=== PATIENT | female | born 1995 | race Asian ===

== ENCOUNTER → 2022-09-20 17:37 | Outpatient (CLI) | payer OTHER, SELFPAY ==
--- NOTE | ~2022-09-20 | XR_ITS ---
EXAMINATION: XR thoracic spine 3V, XR sacrum coccyx min 2V, XR lumbar spine 2-3V DATE: 09/20/2022 18:19 INDICATION: Thoracic, lumbar and coccygeal back pain. TECHNIQUE: 1. One AP, lateral and lateral swimmer's views of the thoracic spine were obtained. 2. AP, lateral and coned-down lateral lumbosacral views of the lumbar spine were obtained. 3. AP, angled AP and lateral views of the sacrum and coccyx were obtained. COMPARISON: None. FINDINGS: Thoracic spine: Alignment is normal. Vertebral body and disc heights are normal. Visualized portion of lungs are laurent r. Cardiomediastinal silhouette is normal. Lumbar spine: Alignment is normal. Vertebral body and disc heights are normal. Profiled lumbar facet joints are nor mal. Normal bowel gas pattern. Sacrum and coccyx: Sacral arches are intact. No fractures. Bilateral sacroiliac joints are normal. IMPRESSION: 1. Negative thoracic, lumbar and sacrococcygeal radiographs. Reviewed, dictated and finalized at location A. IMPRESSION: 1. Negative thoracic, lumbar and sacrococcygeal radiographs. IMPRESSION: 1. Negative thoracic, lumbar and sacrococcygeal radiographs.
== END ==
PROVIDERS: PCP Family Medicine; Visit Provider Family Medicine
DX: M53.3 Sacrococcygeal disorders, not elsewhere classified (principal); M54.6 Pain in thoracic spine; M54.50 Low back pain, unspecified
CPT/HCPCS: 72072; 72100; 72220

== ENCOUNTER 2023-01-22 08:58 | Outpatient (CLI) | payer OTHER, SELFPAY ==
--- NOTE | 2023-01-22 11:30 | NEURO_ITS ---
Impression: # Complains of right wrist pain. # Normal Nerve Conduction Study without Carpal Tunnel Syndrome or ulnar neuropathy. # Normal needle/EMG. # Clinical correlation recommended. Nerve Conduction Studies Anti Sensory Summary Table Stim Site NR Peak (ms) P-T Amp (?V) Site1 Site2 Delta-P (ms) Dist (cm) Randy (m/s) Right Median Anti Sensory (2-3nd Digit) Wrist 2.5 74.9 Wrist 2-3nd Digit 2.5 14.0 56 Wrist 2.5 86.9 Wrist 2-3nd Digit 2.5 14.0 56 Right Radial Anti Sensory (Base 1st Digit) Wrist 1.8 41.9 Wrist Base 1st Digit 1.8 0.0 Right Ulnar Anti Sensory (5th Digit) Wrist 2.3 89.5 Wrist 5th Digit 2.3 14.0 61 Motor Summary Table Stim Site NR Onset (ms) O-P Amp (mV) Site1 Site2 Delta-0 (ms) Dist (cm) Randy (m/s) Right Median Motor (Abd Poll Brev) Wrist 2.6 7.8 Elbow Wrist 4.7 29.0 62 Elbow 7.3 7.0 Right Ulnar Motor (Abd Dig Minimi) Wrist 2.2 10.2 A Elbow Wrist 4.8 29.0 60 A Elbow 7.0 8.9 F Wave Studies NR F-Lat (ms) L-R F-Lat (ms) Right Median (Mrkrs) (Abd Poll Brev) 24.92 Right Ulnar (Mrkrs) (Abd Dig Min) 25.42 EMG Side Muscle Nerve Root Ins Act Fibs Amp Dur Recrt Comment Right 1stDorInt Ulnar C8-T1 Nml Nml Nml Nml Nml Right Ext Indicis Radial (Post Int) C7-8 Nml Nml Nml Nml Nml Right Ext Digitorum Radial (Post Int) C7-8 Nml Nml Nml Nml Nml Right BrachioRad Radial C5-6 Nml Nml Nml Nml Nml Right PronatorTeres Median C6-7 Nml Nml Nml Nml Nml Right Abd Poll Brev Median C8-T1 Nml Nml Nml Nml Nml MTDD
== END 2023-01-22 08:59 | disposition home or self-care (01) ==
LOC: ANHNEURO 08:59
PROVIDERS: PCP Family Medicine
DX: M25.531 Pain in right wrist (principal)
CPT/HCPCS: 95886; 95909

== ENCOUNTER 2024-01-16 09:57 | Outpatient (CLI) | payer BC, SELFPAY ==
[2024-01-16 10:31] LABS: Basophils Percent Auto 0.4 % (0.2-1.2); Eosinophils Absolute Auto 0.1 K/mm3 (0-0.3); Eosinophils Percent Auto 1.6 % (0-4.4); Hematocrit 41.7 % (37.0-47.0); Hemoglobin 13.3 g/dL (12.0-15.0); Immature Granulocyte Absolute 0.06 K/mm3 (0.00-0.031); Immature Granulocyte Percent A 0.7 % (0-0.5); Lymphocytes Percent Auto 24.4 % (18.3-44.2); Mean Corpuscular HGB Conc 31.9 g/dl (32-36); Mean Corpuscular Hemoglobin 27.3 pg (26-34); Mean Corpuscular Volume 85.6 fl (80-100); Mean Platelet Volume 9.6 fl (7.4-10.4); Monocytes Absolute Auto 0.6 K/mm3 (0.1-0.6); Monocytes Percent Auto 6.4 % (2.6-8.5); Neutrophils Percent Auto 66.5 % (45.5-73.1); Platelet Count Result 269 k/mm3 (150-375); Red Blood Count 4.87 M/mm3 (4.2-5.4); Red Cell Distribution Width 14.6 % (11.5-14.5)
[2024-01-16 10:38] LABS: Alanine Aminotransferase 42 U/L (6-35); Albumin Level 4.9 g/dL (3.5-5.1); Alkaline Phosphatase 89 U/L (38-126); Anion Gap 14 mmol/L (4-12); Aspartate Amino Transferase 32 U/L (14-36); Bilirubin,Total 0.4 mg/dL (0.2-1.3); Blood Urea Nitrogen 12 mg/dL (7-17); Calcium 9.3 mg/dL (8.4-10.2); Carbon Dioxide 29 mmol/L (22-30); Chloride 98 mmol/L (98-107); Cholesterol 162 mg/dL (0-200); Estimated Glomerular Filt Rate > 60; Glucose 101 mg/dL (65-110); HDL Direct 40 mg/dL; Potassium 4.3 mmol/L (3.4-5.0); Sodium 141 mmol/L (137-145); Triglycerides 109 mg/dL (<150)
[2024-01-16 10:49] LABS: LDL Cholesterol Direct 95 mg/dL
[2024-01-16 10:58] LABS: Vitamin D 25 Hydroxy 41.8 ng/mL
[2024-01-16 10:58] LABS: Rheumatoid Factor < 12.0 IU/ML (<12)
[2024-01-16 11:04] LABS: Erythrocyte Sedimentation Rate 16 mm/hr (0-20)
[2024-01-16 11:22] LABS: Hemoglobin A1C 5.4 % (<5.7)
[2024-01-19 15:43] LABS: Anti Cyclic Citrullinated Pept <16 UNITS
== END 2024-01-16 09:58 | disposition home or self-care (01) ==
LOC: ANHLAB 10:00
PROVIDERS: PCP Nurse Practitioner Family; Visit Provider Nurse Practitioner Family
DX: Z86.32 Personal history of gestational diabetes (principal); Z13.220 Encounter for screening for lipoid disorders; F31.9 Bipolar disorder, unspecified
CPT/HCPCS: 36415; 80053; 80061; 82306; 82607; 83036; 84443; 85025; 85652; 86038; 86039; 86200; 86430